=== PATIENT | female | born 1990 | race Caucasian/White ===

== ENCOUNTER 2019-11-27 09:41 | Observation (INO) ==
[2019-11-27] MEDS ORDERED: *HR* HYDROmorphone PF 0.5 MG/0.5 ML SYRINGE IVP PRN (10:10)
[2019-11-27] MEDS ORDERED: *HR* OxyCODONE Immed Rel 5 MG TABLET PO PRN (10:10)
[2019-11-27] MEDS ORDERED: Ondansetron 4 MG/2 ML VIAL IVP ONE (10:10)
[2019-11-27] MEDS ORDERED: CeFAZolin Syr 2,000MG/20 ML 2,000 MG/20 ML SYRINGE IVPB ONE (10:13)
[2019-11-27] MEDS ORDERED: Ringers Solution, Lactated 1,000 ML IVC SCH (10:15)
[2019-11-27 10:28] LABS: Activated Partial Thrombo Time 32.1 Seconds (26.0-36.0)
[2019-11-27] MEDS ORDERED: *HR* FentaNYL (PF) 100 MCG/2 ML VIAL IVP ONE ×2 (11:38→12:01)
[2019-11-27] MEDS ORDERED: *HR* Midazolam HCl 2 MG/2 ML VIAL IVP ONE ×2 (11:38→12:02)
[2019-11-27] MEDS ORDERED: Lidocaine/EPI 1:100k 1% 50 ML VIAL ONE (11:39)
[2019-11-27] MEDS ORDERED: 0.9 % Sodium Chloride 500 ML ONE (11:39)
[2019-11-27] MEDS ORDERED: *HR* FentaNYL (PF) 100 MCG/2 ML VIAL ONE ×2 (12:03→12:57)
[2019-11-27] MEDS ORDERED: *HR* Midazolam HCl 2 MG/2 ML VIAL ONE ×2 (12:03→13:01)
[2019-11-27] MEDS ORDERED: Isovue-300 50ML VIAL IVP ONE (12:05)
[2019-11-27] MEDS ORDERED: *HR* Propofol 200 MG/20 ML VIAL IVP ONE (12:57)
[2019-11-27] MEDS ORDERED: Lidocaine -MPF 2% 2 ML VIAL ONE (12:59)
[2019-11-27] MEDS ORDERED: *HR* Rocuronium Bromide 50 MG/5 ML VIAL ONE (12:59)
[2019-11-27] MEDS ORDERED: Lidocaine HCL 4 ML Topical Solution (Laryng-O-Jet Kit Sterile Pak) TP ONE (12:59)
[2019-11-27] MEDS ORDERED: *HR* Succinylcholine 200 MG/10 ML VIAL IVP ONE (12:59)
[2019-11-27] MEDS ORDERED: *HR* HYDROmorphone (PF) 1 MG/ML SYRINGE IVP STA (13:00)
[2019-11-27] MEDS ORDERED: Acetaminophen IV 1,000 MG/100 ML INFUS..BTL ONE (13:06)
[2019-11-27] MEDS ORDERED: Isovue-300 50ML VIAL ONE (13:06)
[2019-11-27] MEDS ORDERED: Lidocaine 1% 20 ML MDV ONE (13:06)
[2019-11-27] MEDS ORDERED: Ondansetron 4 MG/2 ML VIAL ONE (13:43)
[2019-11-27] MEDS ORDERED: Dexamethasone 4 MG/ML VIAL ONE (13:43)
[2019-11-27] MEDS ORDERED: Ketorolac 30 MG/ML VIAL ONE (13:44)
[2019-11-27] MEDS ORDERED: Naloxone 0.4 MG/ML INJ IVP PRN (16:37)
[2019-11-27] MEDS ORDERED: *HR* Belladonna Alkaloids/Opium 30 MG RECTAL SUPPOSITORY RC PRN (16:37)
[2019-11-27] MEDS ORDERED: Ondansetron 4 MG/2 ML VIAL IVP PRN (16:37)
[2019-11-27] MEDS ORDERED: Acetaminophen 325 MG TABLET PO PRN (16:37)
[2019-11-27] MEDS ORDERED: Ketorolac 30 MG/ML VIAL IVP PRN (16:37)
[2019-11-27] MEDS: 0.9 % Sodium Chloride 1,000 ML IVC SCH (16:51)
[2019-11-27] MEDS: CeFAZolin 2 GM/120 ML BAG IVPB SCH (19:50)
[2019-11-27] MEDS: *HR* OxyCODONE/APAP 10/325 TABLET PO PRN (22:50)
[2019-11-28] MEDS: 0.9 % Sodium Chloride 1,000 ML IVC SCH (00:39)
[2019-11-28] MEDS: CeFAZolin 2 GM/120 ML BAG IVPB SCH (04:32)
[2019-11-28 06:47] LABS: Basophils % 0.1 %; Hematocrit 32.6 % (35.3-44.9); Hemoglobin 10.5 g/dL (11.5-15.4); Immature Granulocytes % 0.3 % (0-4); Lymphocytes % 9.1 %; Mean Corpuscular HGB Conc 32.2 g/dL (31.6-35.5); Mean Corpuscular Hemoglobin 30.4 pg (28.0-33.3); Mean Corpuscular Volume 94.5 fL (83.0-100.0); Mean Platelet Volume 9.9 fL (9.4-12.4); Monocytes # 0.5 K/mcL (0.0-1.3); Monocytes % 4.6 %; Neutrophils # 9.5 K/mcL (1.6-8.9); Platelet Count 251 K/mcL (140-400); Red Blood Count 3.45 M/mcL (3.82-4.97); Red Cell Distribution Width 11.9 % (11.5-14.5); Segmented Neutrophils % 85.9 %; White Blood Count 11.1 K/mcL (4.3-11.1)
[2019-11-28 07:08] LABS: BUN/Creatinine Ratio 15 (6-26); Blood Urea Nitrogen 13 mg/dL (6-20); Calcium 8.3 mg/dL (8.6-10.3); Carbon Dioxide 25 mEq/L (23-29); Chloride 109 mEq/L (98-107); Glucose 147 mg/dL (70-105); Osmolality,Calculated 289 (280-300); Potassium 4.1 mEq/L (3.5-5.1); Sodium 138 mEq/L (136-145); eGFR For African Americans > 60 (> 60); eGFR For Non-African Americans > 60 (> 60)
[2019-11-28 13:38] LABS: Hematocrit 31.5 % (35.3-44.9); Hemoglobin 10.5 g/dL (11.5-15.4)
[2019-11-29] MEDS ORDERED: Acetaminophen IV 1,000 MG/100 ML INFUS..BTL IVPB ONE (00:25)
[2019-11-29 11:47] VITALS: BP 94/57
[2019-11-29] MEDS: *HR* OxyCODONE/APAP 10/325 TABLET PO PRN (12:26)
== END 2019-11-29 12:47 | disposition home or self-care (01) ==
LOC: 3ANU 09:41 → SAMDAY 09:41 → 3ANU 16:32
PROVIDERS: ADMIT Urology; ATTEND Urology